=== PATIENT | female | born 1990 | race Caucasian/White ===

== ENCOUNTER 2020-11-07 17:31 | Emergency (ER) | payer MEDICAID, OTHER ==
[2020-11-07] MEDS ORDERED: Sodium Chloride 0.9% 1000 ML 1,000 ML IV STA (17:42)
[2020-11-07] MEDS ORDERED: CLINDAMYCIN-D5W 900 MG/50 ML*** 900 MG/50 ML BAG IV STA (17:44)
[2020-11-07] MEDS ORDERED: TORAdol 30 mg Injection IV ONE (17:45)
[2020-11-07] MEDS ORDERED: TORAdol 30 mg Injection ONE (17:47)
[2020-11-07] MEDS ORDERED: CLINDAMYCIN-D5W 900 MG/50 ML*** 900 MG/50 ML BAG IV ONE (17:47)
[2020-11-07] MEDS ORDERED: Sodium Chloride 0.9% 1000 ML 1,000 ML ONE (17:48)
[2020-11-07 18:09] LABS: Absolute Neutrophil Ct (ANC) 10.69 (1.4-6.9); BASOPHIL % 0.1 % (0.0-0.4); Basophil (Absolute #) 0.01 (0-0.4); Eosinophil % 0.3 % (0.00-5.0); Eosinophil (Absolute #) 0.04 (0-0.5); Hemoglobin 13.4 gm/dl (12.0-16.0); Lymphocyte (Absolute #) 1.58 (1.0-4.6); Lymphocytes % 11.9 % (24.0-44.0); Mean Cell Volume 86.3 fl (78-100); Mean Corpuscular Hemoglobin 28.2 pg (26-32); Mean Corpuscular Hgb Concent. 32.7 g/dl (32-36); Monocyte (Absolute #) 0.98 (0.0-1.3); Monocytes % 7.4 % (0.0-12.0); Neutrophil % 80.3 % (36.0-66.0); Platelet Count 216 K/mm3 (150-450); Red Blood Count 4.75 M/mm3 (4.1-5.4); White Blood Count 13.3 K/mm3 (4.0-10.5)
--- NOTE | 2020-11-07 18:19 | ERPHSYRPT ---
- History of Present Illness Source: patient Exam Limitations: no limitations Patient Subjective Stated Complaint: neck pain, ear pain, jaw pain, neck swelling all on R side Triage Nursing Assessment: pt to ED c/o neck pain and swelling, ear pain, and jaw pain on R side. pt reports swelling makes swallowing difficult. no diff breathing or SOB. dental carries noted on R side of mouth. rates 10/10 pain. denies recent injury or trauma to area Timing/Duration: gradual onset Severity: severe ENT Location: mouth, dental Prearrival Treatment: no prearrival treatment Associated Symptoms: facial pain/swelling, jaw pain, neck pain, tooth pain Hx Tetanus, Diphtheria Vaccination/Date Given: Yes Hx Influenza Vaccination/Date Given: No Hx Pneumococcal Vaccination/Date Given: No Immunizations Up to Date: No <ASH HOPSON - Last Filed: 11/07/20 19:32> <DORA MORAES - Last Filed: 11/07/20 22:03> - History of Present Illness Time Seen by Provider: 11/07/20 17:45 Physician History: Patient is a 30-year-old white female who presents with a complaint of pain in the right mandibular area radiating down the neck. There is a moderate amount of swelling to the left mandible. She states that this is been present for several days getting worse. Dates her pain 10 of 10 (ASH HOPSON) Allergies/Adverse Reactions: No Known Drug Allergies Allergy (Verified 11/07/20 17:42) Travel Risk - International Travel Have you traveled outside of the country in past 3 weeks: No - Coronavirus Screening Are you exhibiting any of the following symptoms?: No Close contact with a COVID-19 positive Pt in past 14-21 Days: No - Vaccine Status Have you recieved a Covid-19 vaccination: No <ASH HOPSON - Last Filed: 11/07/20 19:32> - Review of Systems Constitutional: No Fever, No Chills Eyes: No Symptoms Ears, Nose, & Throat: No Symptoms, Mouth Pain, Loose Teeth Respiratory: No Cough, No Dyspnea Cardiac: No Chest Pain, No Edema, No Syncope Abdominal/Gastrointestinal: No Abdominal Pain, No Nausea, No Vomiting, No Diarrhea Genitourinary Symptoms: No Dysuria Musculoskeletal: No Back Pain, No Neck Pain Skin: No Rash Neurological: No Dizziness, No Focal Weakness, No Sensory Changes Psychological: No Symptoms Endocrine: No Symptoms All Other Systems: Reviewed and Negative <ASH HOPSON Filed: 11/07/20 19:32> - Past Medical History Pertinent Past Medical History: Yes Neurological History: No Pertinent History ENT History: No Pertinent History Cardiac History: No Pertinent History Respiratory History: No Pertinent History Endocrine Medical History: No Pertinent History Musculoskeletal History: No Pertinent History GI Medical History: No Pertinent History History: Other Psycho-Social History: Attention Deficit Disorder Female Reproductive Disorders: No Pertinent History Other Medical History: NATURAL CHILD - Past Surgical History Past Surgical History: Yes Neuro Surgical History: No Pertinent History Cardiac: No Pertinent History Respiratory: No Pertinent History Gastrointestinal: Cholecystectomy Genitourinary: No Pertinent History Musculoskeletal: No Pertinent History Female Surgical History: No Pertinent History - Social History Smoking Status: Current every day smoker How long have you smoked: YRS Exposure to second hand smoke: Yes Drug Use: marijuana Patient Lives Alone: No - Female History Hx Last Menstrual Period: unknown Hx Now: No <ASH HOPSON Filed: 11/07/20 19:32> - Physical Exam General Appearance: mild distress Eye Exam: bilateral eye: normal inspection, PERRL, EOMI Ear Exam: bilateral ear: auricle normal, canal normal, TM normal Nasal Exam: normal inspection Throat Exam: dental tenderness, excessive drooling, mandibular swelling, moist mucus membranes Neck Exam: supple Cardiovascular/Respiratory Exam: normal breath sounds, regular rate/rhythm Abdominal Exam: non-tender, soft Neurologic Exam: alert, oriented x 3, sensation nml, No motor deficits Skin Exam: normal color, warm, dry SpO2 Interpretation: normal SpO2: 100 O2 Delivery: Room Air <ASH HOPSON Filed: 11/07/20 19:32> - Nursing Vital Signs Nursing Vital Signs: Initial Vital Signs Temperature 98.6 F 11/07/20 17:34 Pulse Rate 98 H 11/07/20 17:34 Respiratory Rate 18 11/07/20 17:34 Blood Pressure 136/99 11/07/20 17:34 O2 Sat by Pulse Oximetry 100 11/07/20 17:34 Pain Scale Pain Intensity 5 - Course Nursing assessment & vital signs reviewed: Yes <ASH HOPSON Filed: 11/07/20 19:32> Ordered Tests: Active Orders 24 hr Category Date Time Status FACIAL BONES WO CONTRAST [CT] Stat Exams 11/07/20 19:04 Completed BLOOD CULTURE Stat Lab 11/07/20 18:30 Ordered CBC W DIFF Stat Lab 11/07/20 17:42 Completed Medication Summary Discontinued Medications Generic Name Dose Route Start Last Admin Trade Name Autumn PRN Reason Stop Dose Admin Sodium Chloride 1,000 mls @ 999 mls/hr 11/07/20 17:42 11/07/20 19:18 Sodium Chloride 0.9% 1000 Ml IV 11/07/20 18:42 Infused .Q1H1M STA Infusion Clindamycin HCl/Dextrose 900 mg in 50 mls @ 100 mls/hr 11/07/20 17:44 11/07/20 19:18 Clindamycin-D5w 900 Mg/50 Ml IV 11/07/20 18:13 Infused STAT STA Infusion Clindamycin HCl/Dextrose Confirm 11/07/20 17:47 Clindamycin-D5w 900 Mg/50 Ml Administered 11/07/20 17:48 Dose 900 mg in 50 mls @ ud IV .STK-MED ONE Sodium Chloride Confirm 11/07/20 17:48 Sodium Chloride 0.9% 1000 Ml Administered 11/07/20 17:49 Dose 1,000 mls @ ud .ROUTE .STK-MED ONE Ketorolac Tromethamine 30 mg 11/07/20 17:45 11/07/20 17:51 Toradol 30 Mg Injection IV 11/07/20 17:46 30 mg STAT ONE Administration Ketorolac Tromethamine Confirm 11/07/20 17:47 Toradol 30 Mg Injection Administered 11/07/20 17:48 Dose 30 mg .ROUTE .STK-MED ONE Lab/Rad Data: Laboratory Result Diagrams 11/07/20 17:42 Laboratory Results 11/07/20 Range/Units 17:42 WBC 13.3 H (4.0-10.5) K/mm3 RBC 4.75 (4.1-5.4) M/mm3 Hgb 13.4 (12.0-16.0) gm/dl Hct 41.0 (35-47) % MCV 86.3 (78-100) fl MCH 28.2 (26-32) pg MCHC 32.7 (32-36) g/dl RDW 13.0 (11.5-14.0) % Plt Count 216 (150-450) K/mm3 MPV 10.0 (7.5-11.0) fl Gran % 80.3 H (36.0-66.0) % Eos # (Auto) 0.04 (0-0.5) Absolute Lymphs (auto) 1.58 (1.0-4.6) Absolute Monos (auto) 0.98 (0.0-1.3) Lymphocytes % 11.9 L (24.0-44.0) % Monocytes % 7.4 (0.0-12.0) % Eosinophils % 0.3 (0.00-5.0) % Basophils % 0.1 (0.0-0.4) % Absolute Granulocytes 10.69 H (1.4-6.9) Basophils # 0.01 (0-0.4) - Progress Progress: improved, pain not gone completely Counseled pt/family regarding: diagnosis, need for follow-up, rad results <DORA MORAES - Last Filed: 11/07/20 22:03> - Progress Progress Note: 11/07/20 21:57 CAT scan of the facial bones shows poor dentition with multiple dental caries. There is right mandibular soft tissue swelling and induration favoring cell ulitis. No abscess is seen. (DORA MORAES) <ASH HOPSON - Last Filed: 11/07/20 19:32> - Departure Departure Disposition: Home Critical Care Time: No <DORA MORAES - Last Filed: 11/07/20 22:03> - Departure Clinical Impression: Dental infection, Cellulitis Condition: Stable Referrals: EASTON CARDOSO, ME[employer] [[employer]FF] - Additional Instructions: Add ibuprofen for pain control. Take your antibiotics as prescribed. Follow-up with a dentist for definitive care. If your symptoms worsen, contact facility that has emergent dental intervention or ear nose and throat capabilities. Prescriptions: Amoxicillin 500 mg Cap [Amoxil 500 mg] 500 mg PO TID #30 cap
--- NOTE | 2020-11-07 21:00 | XRAY ---
Indication: Right tooth abscess. Dental caries. Multiple contiguous axial images obtained through the facial bones. Sagittal and coronal reformatted images obtained. There is little dentition with remaining teeth demonstrating multiple dental caries. Also a few bilateral dental amalgams, right greater than left producing beam artifact. Otherwise no suspicious bony lesions or osseous destructive process. Right mandible demonstrates subcutaneous soft tissue swelling/induration without walled off fluid collection or air bubbles probably cellulitis based on clinical history. There are a few enlarged submandibular/sublingual lymph nodes, largest on the right measuring 1.6 x 0.8 cm presumed reactive. Remaining visualized noncontrasted soft tissues are unremarkable. Paranasal sinuses and nasal passages are clear. Incidental left middle turbinate isabel bullosa and mild nasal septal deviation to the right. Orbits including roof, alexander, and floors intact. Impression: 1. Poor dentition with multiple dental caries and beam artifact from dental amalgams. 2. Right mandible soft tissue swelling/induration favoring cellulitis. Enlarged submandibular/left lingual lymph nodes presumed reactive. 3. Incidental left middle turbinate isabel bullosa and mild nasal septal deviation. 4. Remaining CT facial bones without contrast exam is negative.
[2020-11-07] MEDS ORDERED: AMOXIL 500 MG PO ONE (22:03)
[2020-11-07] MEDS ORDERED: NORCO 5/325 MG PO ONE (22:04)
[2020-11-07] MEDS ORDERED: NORCO 5/325 MG ONE (22:23)
[2020-11-07] MEDS ORDERED: AMOXIL 500 MG ONE (22:24)
[2020-11-07 22:41] VITALS: BP 131/79; PULSE 120; O2SAT 98
== END 2020-11-07 22:41 | disposition home or self-care (01) ==
LOC: ED 17:31
DX: K02.9 Dental caries, unspecified (principal); K12.2 Cellulitis and abscess of mouth
CPT/HCPCS: 36415; 70486; 85025; 87040; 96360; 96374; 99284; J1885; A9270-GY